=== PATIENT | male | born 1945 | race Caucasian/White ===

== ENCOUNTER 2018-03-16 11:38 | Emergency (ER) | payer MEDICARE, OTHER ==
[2018-03-16 12:06] LABS: ADD MAN DIFF? NO
[2018-03-16 12:11] LABS: BASO # 0.1 x10^3/uL (0.0-0.2); BASO % 1 % (0-3); EOS # 0.1 x10^3/uL (0.0-0.7); EOS % 1 % (0-3); HEMATOCRIT 43.4 % (39.0-53.0); LYMPH # 1.8 x10^3/uL (1.0-4.8); LYMPH % 18 % (24-48); MEAN CORPUSCULAR HEMOGLOBIN 32 pg (25-35); MEAN CORPUSCULAR HGB CONC 35 g/dL (31-37); MEAN CORPUSCULAR VOLUME 92 fL (79-100); MONO # 0.9 x10^3/uL (0.0-1.1); MONO % 9 % (0-9); NEUT # 7.2 x10^3uL (1.8-7.7); NEUT % 71 % (31-73); PLATELET COUNT 275 x10^3/uL (140-400); RED CELL DISTRIBUTION WIDTH 14.2 % (11.5-14.5); WHITE BLOOD COUNT 10.1 x10^3/uL (4.0-11.0)
[2018-03-16 12:17] LABS: ANION GAP 10 (6-14); BLOOD UREA NITROGEN 19 mg/dL (8-26); BUN/CREATININE RATIO 17 (6-20); CALCIUM 8.8 mg/dL (8.5-10.1); CARBON DIOXIDE 27 mmol/L (21-32); CHLORIDE 104 mmol/L (98-107); CREATININE 1.1 mg/dL (0.7-1.3); GLUCOSE 85 mg/dL (70-99); POTASSIUM 4.1 mmol/L (3.5-5.1); SODIUM 141 mmol/L (136-145)
[2018-03-16 12:19] LABS: ETHANOL < 10 mg/dL (0-10)
[2018-03-16 12:25] LABS: ALBUMIN 3.8 g/dL (3.4-5.0); ALBUMIN/GLOBULIN RATIO 1.2 (1.0-1.7); ALK PHOS 92 U/L (46-116); ALT (SGPT) 19 U/L (16-63); AST (SGOT) 21 U/L (15-37); CREATINE KINASE 393 U/L (39-308); TOTAL BILIRUBIN 1.1 mg/dL (0.2-1.0); TOTAL PROTEIN 6.9 g/dL (6.4-8.2)
[2018-03-16 12:27] LABS: TROPONINI < 0.017 ng/mL (0.000-0.055)
[2018-03-16] MEDS: ASPIRIN CHEWABLE 81 MG TABLET. PO (12:53)
== END 2018-03-16 13:45 | disposition home or self-care (01) ==
LOC: ER 11:38
DX: R07.89 Other chest pain (principal); M25.512 Pain in left shoulder
CPT/HCPCS: 36415; 71045; 80053; 82550; 84484; 85025; 93005; 99285-25; G0480